=== PATIENT | male | born 1970 | race Caucasian/White ===

== ENCOUNTER 2023-03-22 13:50 | Inpatient (IN) | payer OTHER, SELFPAY ==
--- NOTE | 2023-03-22 | ECG_ITS ---
Test Reason : R/O ECG CHANGES Blood Pressure : / mmHG Vent. Rate : 078 BPM Atrial Rate : 078 BPM P-R Int : 154 ms QRS Dur : 098 ms QT Int : 434 ms P-R-T Axes : 040 008 051 degrees QTc Int : 494 ms Normal sinus rhythm Minimal voltage criteria for LVH, may be normal variant ( R in aVL ) Prolonged QT Abnormal ECG When compared with ECG of 15-MAR-2018 19:01, No significant change was found Referred By: Ariana Doran Electronically Signed By:ETHAN TUCKER
--- NOTE | ~2023-03-22 | CT_ITS ---
EXAMINATION: Lumbar spine, chest and CT brain. CLINICAL INDICATIONS: Trauma. COMPARISON: None. TECHNIQUE: Lumbar spine 3 views. Chest one view. 5 mm thin axial and reformatted 2 mm thin sagittal and coronal images of brain were obtained. DLP [id number]. This CT examination was performed using dose optimization technique as appropriate, variously including the following: Automated exposure control Adjustment of MA and/or KV according to patient size(this includes techniques or standardized protocols for targeted exams where dose is matched to indication/reason for exam; extremities or head. Use of iterative reconstruction techniques. FINDINGS: CHEST: There is mild flattening of left lung base likely from small effusion/atelectasis. Rest lungs are expanded and clear. The heart size and pulmonary vascularity is normal. There are median sternotomy sutures from previous intervention. No gross bony abnormality seen. LUMBAR SPINE: There is segmentation anomaly with 6 nonbearing lumbar vertebrae There is normal lumbar lordosis. The vertebral heights, alignment and disc heights are normal. No visible acute fracture, dislocation or subluxation seen. SI joints are symmetrical and normal. . The soft tissues are normal. Brain: There is no acute intra-axial, extra-axial bleed, masses or midline shift. There is no acute infarction in evolution. There is no edema. Rodrigez to white matter differentiation is maintained normal. The lateral ventricles are symmetrical in size and configuration without enlargement. Bone windows reveal no calvarial abnormality. There is mucoperiosteal thickening right maxillary sinus. Rest of the paranasal sinuses and mastoid air cells are well-aerated. CT/CT head/brain wo IV con IMPRESSION: Left lower lobe pleural effusion/atelectasis resulting in flattening of left lung base. Rest lungs are clear. Segmentation anomaly with 6 lumbar vertebrae noted. No visible acute fracture or dislocation seen. No acute intracranial process seen. There is chronic mucoperiosteal thickening right maxillary sinus.
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
--- NOTE | 2023-03-22 14:02 | ED_ITS ---
HPI - General Adult General Chief complaint: Psychiatric Symptoms Stated complaint: CRISIS,SI,SECT 12 Time Seen by Provider: 03/22/23 13:53 Source: patient, EMS and police Mode of arrival: ambulatory Limitations: no limitations History of Present Illness HPI narrative: This is a 52-year-old male presenting with suicide attempt, patient was found trying to jump off a 30 ft bridge, police stopped him grab him, pulled him up against the railing as he was jumping, he reports he is just over everything, he has abrasions to his face which she reports are from his when I ask him with been going on he says I just do not want to talk about , endorses suicidal ideation with plan to jump off bridge in end his life no homicidal ideation. No hallucinations. Has never felt this way before. No medical complaints. Related Data Allergies Allergy/AdvReac Type Severity Reaction Status Date / Time acetaminophen [From TYLENOL] Allergy Unknown UNK Verified 03/22/23 14:44 codeine [CODEINE] Allergy Unknown ANAPHYLAXIS Verified 03/22/23 14:44 metoclopramide [From REGLAN] Allergy Unknown RESTLESS Verified 03/22/23 14:44 CRAWLING OUT OF SKIN prochlorperazine Allergy Unknown RESTLESS Verified 03/22/23 14:44 [From COMPAZINE] Review of Systems 2 Review of Systems: Constitutional : No Weight loss, No Fever, No Chills, No Fatigue, No Malaise ENT/Mouth : No sore throat, No Rhinorrhea Eyes: No Eye Pain, No Swelling, No Redness Cardiovascular : No Chest Pain, No SOB, No Dyspnea on Exertion, No Orthopnea, No Edema, No Palpitations Respiratory : No Cough, No Sputum, No Wheezing Gastrointestinal : No Nausea, No Vomiting, No Diarrhea, No Constipation, No abdominal Pain, No Hematochezia, No Melena Genitourinary : No Dysuria, No Urinary Frequency, No Hematuria, Musculoskeletal : No joint pain, No Myalgias, No Joint Swelling Skin : No Skin Lesions, No rash Neuro : No Weakness, No Numbness, No Dizziness, No Headache Psych : + Anxiety/Panic, + Depression, + SI All other systems reviewed and are negative Yes all other systems are reviewed and are negative PMFSH Past Medical History Attestation statement: The following information was validated with the patient. Source: old records reviewed and nursing notes reviewed Social History Social History Smoked in Last 30 Days: Yes Use of substances other than those prescribed or required for medical reasons: No Advance Directives: No Advance Directives Information Provided: No Physical Exam ED Vital Signs: Vital Signs - 24 hr 03/22/23 14:44 Temperature 98.1 F Pulse Rate 91 Respiratory Rate 17 Blood Pressure 129/91 H Pulse Oximetry 95 Oxygen Delivery Method Room Air BMI result Body Mass Index 27.3 vss Appearance: Alert.? Oriented X3.? No acute distress.? Head: Normocephalic, atraumatic, no step-offs or deformities + abrasions to face, back and b/l lower extremities. Eyes: Pupils equal, round and reactive to light.? CVS: Normal heart rate and rhythm.? Pulses normal.? Respiratory: No respiratory distress.? Breath sounds normal.? Abdomen: Soft and nontender.? Skin: Skin warm and dry.? Normal skin color.? Normal skin turgor.? Extremities: No lower extremity edema.? No calf ttp. 5/5 strength to bilateral upper and lower extremities Back: No midline tenderness, no C-spine tenderness, full range of motion, no CVA tenderness bilaterally Neuro: Oriented X 3.? No motor deficit.? No sensory deficit. CN 2-12 intact. No saddle paresthesias. Ambulatory w/ steady gait normal coordination Course Reevaluation(s) Reevaluation #1: CBC unremarkable. Chemistry unremarkable. Ethanol 133. Salicylates acetaminophen pending. Left lower lobe question infiltrate noted on x-ray due to mechanism of injury will order CT with IV contrast of abdomen, pelvis as well. In CT of head no acute findings. Time: 16:02 Reevaluation #2: Patient will be an inpatient bed search Sign out to Ariana. Time: 16:02 Reevaluation #3: Patient's CT's negative. Patient cleared to go to the POD. Section 12 intact. Time: 19:35 Medications Administered Discontinued Medications Generic Name Dose Route Start Last Admin Trade Name Freq PRN Reason Stop Dose Admin Iohexol 100 ml 03/22/23 17:17 03/22/23 17:17 Iohexol 350 Mg/Ml 100 Ml Infus..Btl IV 03/22/23 17:18 85 ml ONCE ONE Administration Lorazepam 2 mg 03/22/23 15:52 03/22/23 17:43 Lorazepam 1 Mg Tablet PO 03/22/23 15:53 2 mg ONCE ONE Administration Oxycodone HCl 5 mg 03/22/23 16:59 03/22/23 17:43 Oxycodone Hcl Immed Release 5 Mg Tablet PO 03/22/23 17:00 5 mg ONCE ONE Administration Medical Decision Making Medical Decision Making [facility] Narrative: 52-year-old male presents status post suicide attempt prior to arrival on a Section 12. No medical complaint Physical exam abrasions to face, bilateral lower extremities, back History and physical exam concerning for suicide attempt, severe depression, anxiety. Will rule out metabolic derangements. Will rule out traumatic injury to head, back. Unlikely solid organ injury. No abdominal tenderness on exam, breath sounds clear, no signs of flail chest, pneumothorax. No signs of cauda equina or cord compression Plan at this time medical clearance evaluation by behavioral health team. Safety precautions in place Differential Diagnosis Differential Diagnoses: The differential diagnosis associated with the presentation includes History and physical exam concerning for suicide attempt, severe depression, anxiety. Will rule out metabolic derangements. Will rule out traumatic injury to head, back. Unlikely solid organ injury. No abdominal tenderness on exam, breath sounds clear, no signs of flail chest, pneumothorax. No signs of cauda equina or cord compression Admission/Observation Consideration of admission/observation: Escalation of care including admission/observation considered likely Lab Data [facility] Lab Attestation statement: I reviewed the patient's lab results. 03/22/23 14:59 03/22/23 14:59 Labs: Lab Results 03/22/23 03/22/23 Range/Units 14:59 18:47 WBC 8.4 (4.8-10.8) X10*3/uL RBC 4.97 (4.60-5.80) X10*6/uL Hgb 15.5 (14.0-18.0) g/dl Hct 44.6 (42.0-52.0) % MCV 89.7 (80.0-98.0) fL MCH 31.2 (27.0-33.0) pg MCHC 34.8 (31.0-36.0) g/dl RDW 12.7 (11.0-16.0) % Plt Count 129 L (160-400) X10*3/uL MPV 9.4 (9.4-12.4) fL Immature Gran % (Auto) 1.1 H (0.0-0.4) % Neut % (Auto) 59.5 (45-73) % Lymph % (Auto) 28.5 (20-40) % [place] % (Auto) 8.6 (2-11) % Eos % (Auto) 1.8 (0-4) % Baso % (Auto) 0.5 (0-2) % Lymph # (Auto) 2.4 (1.2-4.9) X10*3/uL [place] # (Auto) 0.7 (0.1-1.2) X10*3/uL Eos # (Auto) 0.2 (0.0-0.4) X10*3/uL Baso # (Auto) 0.0 (0.0-0.2) X10*3/uL Abs Immat Gran (auto) 0.09 H (0.00-0.03) X10*3/uL Absolute Neuts (auto) 5.0 (2.0-8.3) x10*3/uL Absolute Nucleated RBC 0.000 (0.0-0.012) X10*3/uL Nucleated RBC % (auto) 0.0 (0.0-0.2) /100WBC Sodium 141 (135-145) mmol/L Potassium 4.3 (3.3-5.1) mmol/L Chloride 104 (96-108) mmol/L Carbon Dioxide 22 (22-29) mmol/L Anion Gap 19 (12-20) BUN 14 (9-16) mg/dL Creatinine 1.11 (0.5-1.4) mg/dL Estim Creat Clear Calc 81.2 Estimated GFR > 60 Random Glucose 111 (60-115) mg/dL Calcium 9.3 (8.4-10.2) mg/dL Magnesium 1.9 (1.6-2.6) mg/dL Total Bilirubin 0.4 (0.0-1.0) mg/dL AST 39 H (5-37) U/L ALT 26 (0-40) U/L Alkaline Phosphatase 93 (39-117) U/L Total Protein 7.7 (6.5-8.0) g/dL Albumin 4.1 (3.5-5.0) g/dL Urine Color Yellow Urine Appearance Clear Urine pH 5.5 (5.0-9.0) Ur Specific [place] >= 1.030 H (1.005-1.025) Urine Protein Negative (Neg-Trace) mg/dL Urine Glucose (UA) Negative (Negative) mg/dL Urine Ketones Negative (Negative) mg/dL Urine Blood Negative (Negative) Urine Nitrite Negative (Negative) Ur Leukocyte Esterase Negative (Negative) Salicylates < 5.0 L (15-30) mg/dL Urine Opiates Screen Not Detected (Not Detect) Urine Fentanyl Screen POSITIVE H (Not Detect) Acetaminophen < 3 (<30) mcg/mL Ur Barbiturates Screen Not Detected (Not Detect) Ur Phencyclidine Scrn Not Detected (Not Detect) Ur Amphetamines Screen Not Detected (Not Detect) U Benzodiazepines Scrn Not Detected (Not Detect) Urine Cocaine Screen POSITIVE H (Not Detect) U Marijuana (THC) Screen Not Detected (Not Detect) Ethyl Alcohol 133 mg/dL Independent Interpretation I performed an independent interpretation of an: CT Scan Radiology Impression Discussion of test interpretation with radiology: I have reviewed the radiologist's reading. Critical Care Time Critical Care Time Critical Care Time: No Discharge Plan Discharge Clinical Impression: Back pain, Suicide attempt, Alcohol intoxication Patient Disposition: Still a Patient Interventions: Addison-Suicide Risk Severity Scale Last Done: 03/22/23 18:21
--- NOTE | 2023-03-22 14:27 | MHC.CARE ---
Call from [facility] clinician, Angie Marc, she evaluated patient on scene with police and determined to need inpatient psychiatric treatment. Evaluation will be sent upon completion.
[2023-03-22 14:44] VITALS: BP 129/91; PULSE 91; RESP 17; TEMP 36.7; O2SAT 95; BMI 27.3
[2023-03-22 15:03] LABS: MANUAL DIFF FLAG NO
[2023-03-22 15:04] LABS: Basophils Percent Auto 0.5 % (0-2); Eosinophils Absolute Auto 0.2 X10*3/uL (0.0-0.4); Eosinophils Percent Auto 1.8 % (0-4); Hematocrit 44.6 % (42.0-52.0); Hemoglobin 15.5 g/dl (14.0-18.0); Imm Gran Abs Auto 0.09 X10*3/uL (0.00-0.03); Imm Gran Pct Auto 1.1 % (0.0-0.4); Lymphocytes Absolute Auto 2.4 X10*3/uL (1.2-4.9); Lymphocytes Percent Auto 28.5 % (20-40); Mean Corpuscular HGB Conc 34.8 g/dl (31.0-36.0); Mean Corpuscular Hemoglobin 31.2 pg (27.0-33.0); Mean Corpuscular Volume 89.7 fL (80.0-98.0); Mean Platelet Volume 9.4 fL (9.4-12.4); Monocytes Absolute Auto 0.7 X10*3/uL (0.1-1.2); Monocytes Percent Auto 8.6 % (2-11); Neutrophils Percent Auto 59.5 % (45-73); Platelet Count 129 X10*3/uL (160-400); Red Blood Count 4.97 X10*6/uL (4.60-5.80); Red Cell Distribution Width 12.7 % (11.0-16.0); White Blood Count 8.4 X10*3/uL (4.8-10.8)
[2023-03-22 15:19] LABS: Alanine Aminotransferase 26 U/L (0-40); Albumin Level 4.1 g/dL (3.5-5.0); Alkaline Phosphatase 93 U/L (39-117); Anion Gap 19 (12-20); Aspartate Amino Transferase 39 U/L (5-37); Bilirubin Total 0.4 mg/dL (0.0-1.0); Blood Urea Nitrogen 14 mg/dL (9-16); Calcium 9.3 mg/dL (8.4-10.2); Carbon Dioxide 22 mmol/L (22-29); Chloride 104 mmol/L (96-108); Creatinine Clr Calc Pharmacy 81.2; Estimated Glomerular Filt Rate > 60; Glucose Random 111 mg/dL (60-115); Magnesium 1.9 mg/dL (1.6-2.6); Potassium 4.3 mmol/L (3.3-5.1); Sodium 141 mmol/L (135-145); Total Protein 7.7 g/dL (6.5-8.0)
--- NOTE | 2023-03-22 15:52 | PC.NURSE ---
pt made a dash to the door, stated he wanted out of here. pt redirected back to bed. given sandwich and crackers per CHRISTINA Scherer. 1:1 sitter at bedside for pt safety.
[2023-03-22 15:53] LABS: Ethanol 133 mg/dL
--- NOTE | 2023-03-22 16:50 | PC.NURSE ---
20G IV placed to LAC. awaiting CT scan. pt resting quietly on stretcher in no apparent distress. rr even/unlabored. plan of care ongoing.
[2023-03-22 17:13] LABS: Acetaminophen LAB < 3 mcg/mL (<30); Salicylate < 5.0 mg/dL (15-30)
[2023-03-22] MEDS: iohexoL 350 MG/ML 100 ML INFUS..BTL IV (17:17)
[2023-03-22] MEDS: LORazepam 1 MG TABLET 2 MG PO (17:43)
[2023-03-22] MEDS: oxyCODONE HCl Immed Release 5 MG TABLET PO (17:43)
--- NOTE | 2023-03-22 18:13 | PC.NURSE ---
pt medicated per may. cleared by CHRISTINA Seo to go to POD while awaiting CT scan results.
[2023-03-22 19:07] LABS: Appearance Urine Clear; Color Urine Yellow; Glucose Urine UA Negative (Negative); Leukocyte Esterase Urine Negative (Negative); Nitrite Urine Negative (Negative); PH 5.5 (5.0-9.0); Specific Gravity - Urine >= 1.030 (1.005-1.025); Urine Blood Negative (Negative); Urine Ketones Negative (Negative); Urine Protein Negative (Neg-Trace)
[2023-03-22 19:13] LABS: Amphetamine Screen Urine Not Detected (Not Detect); Barbiturates, Urine Not Detected (Not Detect); Benzodiazepines Screen Urine Not Detected (Not Detect); Cannabinoid Screen Urine Not Detected (Not Detect); Cocaine Screen Urine POSITIVE (Not Detect); Fentanyl, urine POSITIVE (Not Detect); Opiate Screen Urine Not Detected (Not Detect); Phencyclidine Screen Urine Not Detected (Not Detect)
[2023-03-22 20:17] LABS: COVID-19 Test Negative (Negative); IDNOW Serial# BCCEAD1C
[2023-03-23 02:00] VITALS: BP 168/98; PULSE 88; RESP 18; TEMP 36.4; O2SAT 98
[2023-03-23] MEDS: hydrOXYzine HCL 25 MG TABLET PO (02:21)
[2023-03-23] MEDS: traZODone HCL 50 MG TABLET PO (02:21)
[2023-03-23] MEDS: Acetaminophen 325 MG TABLET 650 MG PO ×3 (02:21→21:06)
[2023-03-23] MEDS: LORazepam 1 MG TABLET PO ×3 (02:21→14:17)
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
[2023-03-23 08:00] VITALS: BP 150/83; PULSE 78; RESP 16; TEMP 36.7; O2SAT 96
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
[2023-03-23 09:59] LABS: Cholesterol 179 mg/dL (<200); HDL Cholesterol 38 mg/dL (>40); LDL Cholesterol Calculated 75 mg/dL (<100); Triglycerides 332 mg/dL (<150)
[2023-03-23 10:17] LABS: Estimated Average Glucose 114 mg/dL; Hemoglobin A1c % 5.6 % (<6.0)
[2023-03-23] MEDS: Folic Acid 1 MG TABLET PO (10:17)
[2023-03-23] MEDS: Thiamine HCL 100 MG TABLET PO (10:17)
--- NOTE | 2023-03-23 10:48 | HE.PHANOTE ---
RE: METHADONE DOSING Last dose was 195 mg, given on 03/21/23 @0821 per [facility].
[2023-03-23] MEDS: methADONE HCl 20 MG/2 ML ORAL.CONC 195 MG PO (10:56)
[2023-03-23 11:01] LABS: Glucose, Whole Blood 244 mg/dL (60-115)
[2023-03-23] MEDS: FLUoxetine HCl 10 MG CAPSULE 30 MG PO (11:18)
[2023-03-23] MEDS: Cariprazine HCl 1.5 MG CAPSULE PO (11:18)
[2023-03-23] MEDS: metFORMIN HCl ER 500 MG TAB.ER.24H PO (11:18)
[2023-03-23] MEDS: LORazepam 1 MG TABLET 2 MG PO ×2 (17:55→21:06)
[2023-03-23 18:00] VITALS: BP 175/96; PULSE 90; TEMP 36.4; O2SAT 97
--- NOTE | 2023-03-23 18:03 | PC.NURSE ---
Pt signed 3-day notice on 03/23/23; up 03/29/23.
[2023-03-23] MEDS: traZODone HCL 100 MG TABLET PO (21:07)
[2023-03-24 08:30] VITALS: BP 184/89; PULSE 109; RESP 16; TEMP 36.4; O2SAT 98
[2023-03-24] MEDS: FLUoxetine HCl 20 MG CAPSULE 40 MG PO (09:07)
[2023-03-24] MEDS: metFORMIN HCl ER 500 MG TAB.ER.24H PO (09:07)
[2023-03-24] MEDS: Acetaminophen 325 MG TABLET 650 MG PO ×2 (09:07→15:07)
[2023-03-24] MEDS: methADONE HCl 20 MG/2 ML ORAL.CONC 195 MG PO (09:07)
[2023-03-24] MEDS: Thiamine HCL 100 MG TABLET PO (09:07)
[2023-03-24] MEDS: hydroCHLOROthiazide 12.5 MG TABLET PO (09:07)
[2023-03-24] MEDS: Cariprazine HCl 1.5 MG CAPSULE PO (09:07)
[2023-03-24] MEDS: Folic Acid 1 MG TABLET PO (09:07)
[2023-03-24] MEDS: LORazepam 1 MG TABLET PO ×2 (09:07→18:36)
[2023-03-24] MEDS: Nicotine 21 MG PATCH.TD24 TRANSDERMA (10:10)
[2023-03-24 12:00] VITALS: BP 139/77; PULSE 92; RESP 16; TEMP 36.6; O2SAT 97
[2023-03-24] MEDS: hydrOXYzine HCL 25 MG TABLET PO ×2 (13:18→19:42)
[2023-03-24] MEDS: OLANZapine 5 MG TABLET PO (13:18)
[2023-03-24] MEDS: Ibuprofen 400 MG TABLET PO (17:01)
[2023-03-24 18:00] VITALS: BP 167/97; PULSE 114; RESP 16; O2SAT 96
[2023-03-24 18:43] LABS: Glucose, Whole Blood 171 mg/dL (60-115)
[2023-03-24] MEDS: traZODone HCL 100 MG TABLET PO (19:42)
[2023-03-24 20:34] VITALS: BP 147/107; PULSE 113; RESP 18; O2SAT 95
[2023-03-24] MEDS: Magnesium Hydrox/Alum Hydrox 30 ML ORAL.SUSP PO (20:36)
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
[2023-03-25] MEDS: Magnesium Hydrox/Alum Hydrox 30 ML ORAL.SUSP PO (00:56)
[2023-03-25] MEDS: LORazepam 1 MG TABLET 2 MG PO ×3 (00:56→20:38)
[2023-03-25 08:25] VITALS: BP 153/83; PULSE 103; RESP 16; TEMP 36.4; O2SAT 92
[2023-03-25] MEDS: Nicotine 21 MG PATCH.TD24 TRANSDERMA (08:45)
[2023-03-25] MEDS: methADONE HCl 20 MG/2 ML ORAL.CONC 195 MG PO (08:45)
[2023-03-25] MEDS: hydroCHLOROthiazide 12.5 MG TABLET PO (08:49)
[2023-03-25] MEDS: Ibuprofen 400 MG TABLET PO (08:50)
[2023-03-25] MEDS: metFORMIN HCl ER 500 MG TAB.ER.24H PO (08:50)
[2023-03-25] MEDS: FLUoxetine HCl 20 MG CAPSULE 40 MG PO (08:51)
[2023-03-25] MEDS: Thiamine HCL 100 MG TABLET PO (08:51)
[2023-03-25] MEDS: Folic Acid 1 MG TABLET PO (08:51)
[2023-03-25] MEDS: Cariprazine HCl 1.5 MG CAPSULE PO (08:51)
[2023-03-25] MEDS: LORazepam 1 MG TABLET PO ×2 (09:35→13:34)
[2023-03-25] MEDS: Omeprazole 40 MG CAPSULE.DR PO (10:45)
[2023-03-25] MEDS: hydrOXYzine HCL 25 MG TABLET PO (15:57)
[2023-03-25 18:00] VITALS: BP 141/105; PULSE 108; RESP 18; TEMP 36.6; O2SAT 96
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
[2023-03-25] MEDS: traZODone HCL 100 MG TABLET PO (23:32)
[2023-03-26] MEDS: Omeprazole 40 MG CAPSULE.DR PO (06:20)
[2023-03-26 08:41] VITALS: BP 153/88; PULSE 105; RESP 18; TEMP 36.1; O2SAT 97
[2023-03-26] MEDS: Nicotine 21 MG PATCH.TD24 TRANSDERMA (09:09)
[2023-03-26] MEDS: methADONE HCl 20 MG/2 ML ORAL.CONC 195 MG PO (09:10)
[2023-03-26] MEDS: Thiamine HCL 100 MG TABLET PO (09:12)
[2023-03-26] MEDS: Folic Acid 1 MG TABLET PO (09:12)
[2023-03-26] MEDS: Cariprazine HCl 1.5 MG CAPSULE PO (09:12)
[2023-03-26] MEDS: metFORMIN HCl ER 500 MG TAB.ER.24H PO (09:12)
[2023-03-26] MEDS: FLUoxetine HCl 20 MG CAPSULE 40 MG PO (09:12)
[2023-03-26] MEDS: LORazepam 1 MG TABLET PO ×4 (10:29→20:25)
[2023-03-26] MEDS: OLANZapine 5 MG TABLET PO (13:31)
[2023-03-26] MEDS: Hydrocortisone 1 % Cream 28.35 GM TUBE 1 APPL TOPICAL (15:15)
[2023-03-26] MEDS: diphenhydrAMINE HCL 25 MG CAPSULE PO (15:37)
[2023-03-26 18:00] VITALS: BP 144/96; PULSE 114; TEMP 36.4
[2023-03-26] MEDS: traZODone HCL 100 MG TABLET PO (20:25)
[2023-03-26] MEDS: Ibuprofen 400 MG TABLET PO (20:26)
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
[2023-03-26] MEDS: Acetaminophen 325 MG TABLET 650 MG PO (23:35)
[2023-03-26] MEDS: hydrOXYzine HCL 25 MG TABLET PO (23:35)
[2023-03-26] MEDS: traZODone HCL 50 MG TABLET PO (23:35)
[2023-03-27] MEDS: Ibuprofen 400 MG TABLET PO (03:48)
[2023-03-27] MEDS: Omeprazole 40 MG CAPSULE.DR PO (06:19)
[2023-03-27 08:15] VITALS: BP 156/99; PULSE 91; RESP 18; TEMP 36.6; O2SAT 96
[2023-03-27] MEDS: LORazepam 1 MG TABLET PO ×3 (08:23→20:51)
[2023-03-27] MEDS: Cariprazine HCl 1.5 MG CAPSULE PO (08:23)
[2023-03-27] MEDS: FLUoxetine HCl 20 MG CAPSULE 40 MG PO (08:23)
[2023-03-27] MEDS: metFORMIN HCl ER 500 MG TAB.ER.24H PO (08:23)
[2023-03-27] MEDS: Folic Acid 1 MG TABLET PO (08:23)
[2023-03-27] MEDS: Thiamine HCL 100 MG TABLET PO (08:23)
[2023-03-27] MEDS: methADONE HCl 20 MG/2 ML ORAL.CONC 195 MG PO (08:24)
[2023-03-27] MEDS: Nicotine 21 MG PATCH.TD24 TRANSDERMA (09:09)
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
[2023-03-27] MEDS: hydroCHLOROthiazide 12.5 MG TABLET PO (11:55)
[2023-03-27] MEDS: Losartan Potassium 50 MG TABLET 25 MG PO (11:55)
[2023-03-27] MEDS: Acetaminophen 325 MG TABLET 650 MG PO (13:38)
[2023-03-27] MEDS: traZODone HCL 100 MG TABLET PO (20:51)
[2023-03-27 21:00] VITALS: BP 160/82; PULSE 101; TEMP 36.7
[2023-03-27] MEDS: Hydrocortisone 1 % Cream 28.35 GM TUBE 1 APPL TOPICAL (21:51)
[2023-03-27] MEDS: diphenhydrAMINE HCL 25 MG CAPSULE PO (21:52)
[2023-03-28] MEDS: traZODone HCL 50 MG TABLET PO ×2 (00:03→22:38)
[2023-03-28] MEDS: hydrOXYzine HCL 25 MG TABLET PO ×3 (00:03→15:59)
[2023-03-28] MEDS: Ibuprofen 400 MG TABLET PO (03:05)
[2023-03-28] MEDS: OLANZapine 5 MG TABLET PO ×2 (03:05→13:31)
[2023-03-28] MEDS: Omeprazole 40 MG CAPSULE.DR PO (06:24)
[2023-03-28 08:00] VITALS: BP 132/78; PULSE 90; RESP 16; TEMP 36.4; O2SAT 97
[2023-03-28] MEDS: methADONE HCl 20 MG/2 ML ORAL.CONC 195 MG PO (08:49)
[2023-03-28] MEDS: Nicotine 21 MG PATCH.TD24 TRANSDERMA (08:49)
[2023-03-28] MEDS: Cariprazine HCl 1.5 MG CAPSULE PO (08:53)
[2023-03-28] MEDS: metFORMIN HCl ER 500 MG TAB.ER.24H PO (08:53)
[2023-03-28] MEDS: hydroCHLOROthiazide 12.5 MG TABLET PO (08:53)
[2023-03-28] MEDS: LORazepam 1 MG TABLET PO ×2 (08:53→20:12)
[2023-03-28] MEDS: FLUoxetine HCl 20 MG CAPSULE 40 MG PO (08:53)
[2023-03-28] MEDS: Losartan Potassium 50 MG TABLET PO (08:53)
[2023-03-28] MEDS: Thiamine HCL 100 MG TABLET PO (08:53)
[2023-03-28] MEDS: Folic Acid 1 MG TABLET PO (08:53)
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
[2023-03-28 09:57] LABS: Creatinine Clr Calc Pharmacy 75.8; Estimated Glomerular Filt Rate > 60
[2023-03-28 17:00] VITALS: BP 143/82; PULSE 101; RESP 16; TEMP 36.8; O2SAT 94
[2023-03-28] MEDS: traZODone HCL 100 MG TABLET PO (20:12)
[2023-03-28] MEDS: Acetaminophen 325 MG TABLET 650 MG PO (22:37)
[2023-03-29] MEDS: Omeprazole 40 MG CAPSULE.DR PO (06:11)
[2023-03-29 07:00] VITALS: BP 133/92; PULSE 98; TEMP 36.6; O2SAT 96
[2023-03-29] MEDS: methADONE HCl 20 MG/2 ML ORAL.CONC 195 MG PO (09:00)
[2023-03-29] MEDS: Nicotine 21 MG PATCH.TD24 TRANSDERMA (09:00)
[2023-03-29] MEDS: FLUoxetine HCl 20 MG CAPSULE 40 MG PO (09:02)
[2023-03-29] MEDS: Thiamine HCL 100 MG TABLET PO (09:02)
[2023-03-29] MEDS: Losartan Potassium 50 MG TABLET PO (09:02)
[2023-03-29] MEDS: Cariprazine HCl 1.5 MG CAPSULE PO (09:02)
[2023-03-29] MEDS: LORazepam 1 MG TABLET PO (09:02)
[2023-03-29] MEDS: Folic Acid 1 MG TABLET PO (09:02)
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
== END 2023-03-29 11:59 | disposition home or self-care (01) | DRG 753 ==
LOC: HO.ED 18:44 → HO.PM5 22:19
PROVIDERS: Physician Assistant; Physician Assistant Medical; Admitting Provider Psychiatry & Neurology Psychiatry; Emergency Provider Emergency Medicine; Visit Provider Psychiatry & Neurology Psychiatry
DX: F31.81 Bipolar II disorder (principal); R45.851 Suicidal ideations; F10.20 Alcohol dependence, uncomplicated; F11.20 Opioid dependence, uncomplicated; F14.20 Cocaine dependence, uncomplicated; F17.210 Nicotine dependence, cigarettes, uncomplicated; Y90.6 Blood alcohol level of 120-199 mg/100 ml; Z20.822 Contact with and (suspected) exposure to COVID-19; Z59.02 Unsheltered homelessness; Z71.6 Tobacco abuse counseling; Z79.84 Long term (current) use of oral hypoglycemic drugs; Z79.899 Other long term (current) drug therapy
CPT/HCPCS: 36415; 70450; 71045; 71260; 72100; 74177; 80053; 80061; 80143; 80179; 80307; 81003; 82565; 82947; 83036; 83735; 85025; 87635; 93005; 99285; Q9967

== ENCOUNTER → 2023-03-22 22:06 | Outpatient (BNV) | payer OTHER, SELFPAY | PROVIDERS: Admitting Provider Psychiatry & Neurology Psychiatry; Emergency Provider Emergency Medicine; Visit Provider Psychiatry & Neurology Psychiatry | DX: F31.81 Bipolar II disorder (principal); F14.10 Cocaine abuse, uncomplicated; F10.90 Alcohol use, unspecified, uncomplicated; F43.11 Post-traumatic stress disorder, acute; F11.90 Opioid use, unspecified, uncomplicated | CPT/HCPCS: 90792; 99231; 99232; 99239 ==